=== PATIENT | female | born 1985 | race Hispanic/Latino ===

== ENCOUNTER 2018-05-06 08:10 | Inpatient (IN) | payer MEDICAID, OTHER, SELFPAY ==
[2018-05-06] MEDS ORDERED: Acetaminophen 500 MG TAB PO PRN (08:51)
[2018-05-06] MEDS ORDERED: Lidocaine 1% (PF) 30 ML VIAL SC PRN (08:51)
[2018-05-06] MEDS ORDERED: Ibuprofen 800 MG TAB PO PRN ×2 (08:51→16:22)
[2018-05-06] MEDS ORDERED: NS / Oxytocin 40 units/1000ml 1,000 ML IV PRN (08:51)
[2018-05-06] MEDS ORDERED: Misoprostol 200 MCG TAB PR PRN (08:51)
[2018-05-06] MEDS ORDERED: Ondansetron PF 4 MG/2 ML Vial IVP PRN ×2 (08:51→10:20)
[2018-05-06] MEDS ORDERED: Butorphanol Tartrate 1 MG/ML VIAL SLOW IVP PRN (08:51)
[2018-05-06] MEDS ORDERED: Carboprost 250 MCG/ML AMP IM PRN (08:51)
[2018-05-06] MEDS ORDERED: Methylergonovine 0.2 MG/ML VIAL IM PRN (08:51)
[2018-05-06] MEDS ORDERED: Promethazine HCl 25 MG/ML VIAL IM PRN ×2 (08:51→10:20)
--- NOTE | 2018-05-06 09:04 | PDOC.FPROB ---
FMR OB H&P: HPI - History of Present Illness Chief Complaint: ROM/contractions Indentification: History of Present Illness: 33yo at 38.6weeks EGA dated by LMP presenting for increased contractions and after waking up in puddle of fluid at 0600 this AM. She reports painful contractions every 5min. Denies any complications with so far. Primary Care Physician: Dr. Cedillo FMR OB H&P: Current - Care : 1 Para: 1999 Gestational age: 38.6 Due date: 05/14/2018 Dating Criteria: LMP - OB Labs Blood type: O RH: positive Antibody Screen: negative HIV: negative RPR: negative HepBsAg: negative Rubella: immune Quad screen: negative Urine drug screen: negative Gonorrhea: negative Chlamydia: negative GBS: negative FMR OB H&P: History - Past Medical History PMH: none - OB History OB History: #1: 2 years ago, full term in [place]. No reported complications. - Surgical History Sx History: L ankle surgery - Social History Social History: Denies etoh/tobacco/drugs - Family History Family History: non contributory FMR OB H&P: Medications - Current Allergies/Adverse Reactions: Allergies Allergy/AdvReac Type Severity Reaction Status Date / Time No Known Allergies Allergy Verified 05/06/18 09:07 FMR OB H&P: ROS - Review of Systems General: denies: fever/chills, fatigue ENT: denies: nasal congestion, rhinorrhea Cardiovascular: denies: chest pain, palpitation Respiratory: denies: cough, congestion, shortness of breath Gastrointestinal: reports: abdominal pain (per hpi), cramping Genitourinary (Female): denies: dysuria, hematuria Musculoskeletal: denies: pain, stiffness Neurologic: denies: syncope, seizures Integumentary: denies: rash, lesions Endocrine: denies: cold intolerance, heat intolerance Psychological: denies: depression, anxiety FMR OB H&P: Vital Signs - Heart Tones Baseline: 150 Variability: moderate Acceleration: present Category: category 1 FMR OB H&P: Physical Exam - Physical Exam General: NAD, awake, alert and oriented HEENT: normocephalic and atraumatic, EOMI, grossly normal vision, grossly normal hearing Neck: supple, trachea midline Chest: non-tender to palpation Heart: RRR, normal S1/S2 General: CTAB, no respiratory distress Abdomen: gravid, bowel sound present Musculoskeletal: pulses present, no atrophy Neurological: sensation to pain,touch and proprioception grossly normal, no focal deficit Skin: no rash, good tugor Lymphatic: no purpura, no petechia Psychiatric: intact recent and remote memory, good judgement and insight - Pelvic Exam Vulva: no discharge, no blood SVE: /0 Membranes: ruptured Presentation: cephalic FMR OB H&P: A/P Discussion: Labor with term A- Pt in active labor, no complications as of now, GBS negative. FHT reassuring. Pt desires epidural P- Admit pt to L&D - will plan for epidural placement - monitor FHT and contractions - recheck in 2hr
[2018-05-06 09:12] VITALS: BMI 28.9
[2018-05-06] MEDS: Lactated Ringer's 1,000 ML IV SCH ×3 (09:24→12:01)
[2018-05-06 09:25] LABS: Hemoglobin 11.8 g/dL (12.0-16.0); Mean Corpuscular HGB CONC 33.3 g/dL (32.0-36.0); Mean Corpuscular Hemoglobin 28.5 pg (27.0-31.0); Mean Corpuscular Volume 85.7 fL (78.0-98.0); Mean Platelet Volume 9.1 fL (7.4-10.4); Platelet Count 259 thou/uL (130-400); RBC Distribution Width 12.9 % (11.5-14.5); Red Blood Cell (RBC) Count 4.15 mill/uL (4.20-5.40); White Blood Cell (WBC) Count 16.8 thou/uL (4.8-10.8)
[2018-05-06] MEDS ORDERED: Fentanyl 4 mcg/Bup 0.1% Cadd 100 ML ONE (09:42)
[2018-05-06 09:58] LABS: HBSAg Index 0.16 S/CO (0-0.99); Hep B Surf Ag Non-Reactive S/CO (NonReactive)
[2018-05-06 09:59] LABS: Syphilis Antibody Nonreactive (Nonreactive); Syphilis Antibody Index 0.05 S/CO (<1.00 Non-Reactive)
[2018-05-06] MEDS ORDERED: ePHEDrine/0.9% NaCl/PF SYRINGE 50 mg/10 ml SLOW IVP PRN (10:20)
[2018-05-06] MEDS ORDERED: Eucerin (Mineral Oil/Petrolatum,White) 30 gm Jar TOP PRN (10:20)
[2018-05-06] MEDS ORDERED: Lactated Ringer's 500 ML IV PRN (10:20)
[2018-05-06] MEDS ORDERED: Acetaminophen 325 MG TAB PO PRN (10:20)
[2018-05-06] MEDS ORDERED: Naloxone HCl 0.4 mg/ml Vial IVP PRN ×2 (10:20)
[2018-05-06] MEDS ORDERED: diphenhydrAMINE 50 MG/ML VIAL IVP PRN (10:20)
[2018-05-06] MEDS ORDERED: Fentanyl 4 mcg/Bupivacaine 0.1% Cassette 100 ML EPIDURAL SCH (10:30)
[2018-05-06] MEDS ORDERED: Communication Order-Pharmacy FS SCH (10:30)
[2018-05-06] MEDS ORDERED: Bupivacaine/Epinephrine 0.25% 30 ML VIAL ONE (11:11)
[2018-05-06] MEDS ORDERED: Bupivacaine 0.25% HCL 30 ML VIAL ONE (11:11)
[2018-05-06] MEDS ORDERED: Sodium Chloride 0.9% (PF) 10 ML VIAL ONE (11:11)
[2018-05-06] MEDS ORDERED: Lidocaine 2% MPF 10 ML AMP (For Epidural Use) ONE (11:11)
[2018-05-06] MEDS ORDERED: NS w/ Oxytocin 10 units 500 ML ONE (11:43)
[2018-05-06] MEDS ORDERED: NS w/ Oxytocin 10 units 500 ML IV SCH (11:45)
--- NOTE | 2018-05-06 12:14 | PDOC.LDPN ---
Labor & Delivery Progress Note - Subjective Subjective: comfortable, no concerns - Objective Vital signs reviewed and normal: yes General: NAD, resting Uterine fundus: non tender SVE: 8/90/0 FHT: category 1, variability present Resuscitative measures: maternal IV fluids Plan: pitocin for augmentation -: Labor with term A- Pt in active labor with epidural in place, no complications as of now, GBS negative. FHT reassuring with baseline in 130's moderate variability P- will start pitocin - monitor FHT and contractions - recheck in 2hr
--- NOTE | 2018-05-06 13:27 | PDOC.LDPN ---
Labor & Delivery Progress Note - Subjective Subjective: comfortable, no concerns - Objective Vital signs reviewed and normal: yes General: NAD, resting Uterine fundus: non tender SVE: /0 FHT: category 2, variable decelerations, late decelerations, variability present IUPC placed: yes -: Labor with term A- Pt in active labor with epidural in place, pt had late decels after starting pitocin. GBS negative. FHT reassuring with baseline in 130's moderate variability. IUPC placed P- will hold pitocin - IUPC placed - monitor FHT and contractions - recheck in 2hr
--- NOTE | 2018-05-06 14:33 | PRG ---
DATE OF SERVICE: 05/06/2018 TIME OF SERVICE: 1320 hours. SUBJECTIVE: I called to see patient for D cells. Upon presentation when I saw her over the past 1 to 2 hours, the patient then had variable D cells to the 80s to 90s at times. It is uncertain with external monitors as to whether or not these were after contractions or during. They returned to baseline of 140s to 150s. heart rate tracing was category 2, but no worrisome signs for compromise noted. Contractions about every 3 minutes. The patient's Pitocin, which has been started at very low dose was off. OBJECTIVE: The patient was noted to be grossly ruptured. Her cervix was 7 cm, 80% to 90% effaced, and 0 to -1 station cephalic. IUPC was placed without difficulty. No heart rate abnormality was noted immediately after placement of IUPC. IMPRESSION: Category 1 heart rate tracing at 7 cm with spontaneous labor at 38 to 39 weeks' gestation and G2, P1 with estimated weight of 7.5 to 8 pounds. PLAN: Continue monitoring. Observe contraction pattern. May consider amnioinfusion for possible cord compression. Job ID: [id number]
[2018-05-06] MEDS ORDERED: Benzocaine/Menthol 20-0.5% 60 ML CAN TOP PRN (16:20)
[2018-05-06] MEDS ORDERED: Lanolin Ointment 7 GM TUBE TOP PRN (16:20)
[2018-05-06] MEDS ORDERED: Preparation H Ointment 28 GM TUBE PR PRN (16:20)
[2018-05-06] MEDS ORDERED: Bisacodyl 10 MG SUPP PR PRN (16:20)
[2018-05-06] MEDS ORDERED: Milk Of Magnesia 30 ML UDCUP PO PRN (16:20)
[2018-05-06] MEDS ORDERED: Adacel (T-DAP) 0.5 ML SYRINGE IM ONE (16:20)
[2018-05-06] MEDS ORDERED: diphenhydrAMINE 25 MG CAP PO PRN (16:20)
[2018-05-06] MEDS ORDERED: Lidocaine 1% (PF) 30 ML VIAL ONE (16:32)
--- NOTE | 2018-05-06 18:09 | PDOC.OPDEL ---
OB Operative/Delivery Note Delivery Dr/Surgeon: Precious Cedillo Dawson Pre-Delivery Diagnosis: active labor Procedure/Post Delivery Dx: spontaneous vaginal delivery Weeks gestation: 38 (38.6) Anesthesia: epidural - Additional Findings/Plan Placenta delivered: spontaneous Repaired Obstetrical Laceration: 2nd degree Estimated blood loss: 105ml Compilations/Other Findings: Indications: A 33y/o female presents in active labor Delivery Note: This is 33yo F now 1999 @ 38.6wks who delivered a viable F at 1516 on 05/06/2018. Following an uneventful antepartum course, a vigorous F was delivered over an intact perineum in the occipitoanterior position. Anterior Shoulder and then remainder of the body delivered. No nuchal cord. The head was held down and mouth and nares were bulb suctioned. Cord clamped after delayed cord clamping and cut and cord blood collected. Placenta delivered intact in the [place] presentation with a 3 vessel cord noted. Fundal massage was performed and the fundus was firm. The cervix and vagina were inspected and found to have 2nd degree laceration noted and repaired with 3.0 Vicrl in the usual fashion with good approximation and hemostasis after a local anesthetic 1% lidocane (5ml) was injected at site. went to nursery in good condition for routine care. Apgars were 9/9 at 1 & 5 minutes, respectively. Patient tolerated delivery well and went to after routine recovery/care.
[2018-05-07 05:56] LABS: Hemoglobin 9.2 g/dL (12.0-16.0); Mean Corpuscular HGB CONC 33.5 g/dL (32.0-36.0); Mean Corpuscular Volume 86.5 fL (78.0-98.0); Mean Platelet Volume 8.5 fL (7.4-10.4); Platelet Count 181 thou/uL (130-400); RBC Distribution Width 12.8 % (11.5-14.5); Red Blood Cell (RBC) Count 3.18 mill/uL (4.20-5.40); White Blood Cell (WBC) Count 15.7 thou/uL (4.8-10.8)
--- NOTE | 2018-05-07 07:37 | PDOC.PP ---
Post Progress Note Post Day #: 1 Subjective: Patient doing well. No significant overnight events. Patient tolerating PO. Passing flatus. Patient states she is having muscles aches since last night but otherwise feels fine. Denies fever, chills, shortness of breath, cough, congestion, N/V. PO intake tolerated: yes Flatus: yes Ambulation: yes Vital Signs (12 hours) Temp Pulse Resp BP Pulse Ox 05/07/18 01:00 97.8 F 87 17 97/55 L 05/06/18 20:25 98.5 F 102 H 17 112/60 05/06/18 20:00 100 Weight Weight 67.132 kg - Physical Examination General: NAD Cardiovascular: RRR Respiratory: non-labored breathing Abdominal: + bowel sounds, lochia (mild; similar to that of period), no distention, appropriately TTP Fundus firm & at: at umbilicus Neurological: no gross focal deficits Psychiatric: A&Ox3, normal affect Result Diagrams: 05/07/18 05:45 Additional Labs: Post Labs Blood Type O POSITIVE 05/06/18 08:58 Hep Bs Antigen Non-Reactive S/CO (NonReactive) 05/06/18 08:58 (1) Term delivered Code(s): O80 - ENCOUNTER FOR FULL-TERM UNCOMPLICATED DELIVERY Status: Acute (2) (spontaneous vaginal delivery) Code(s): O80 - ENCOUNTER FOR FULL-TERM UNCOMPLICATED DELIVERY Status: Acute (3) Second degree perineal laceration Code(s): O70.1 - SECOND DEGREE PERINEAL LACERATION DURING DELIVERY Status: Acute - Assessment/Plan 33 year old at 38.6 wks delivered TAGA F infant at 16:13 on 05/06/2018 via . Apgars 9/9. Term , delivered: - Routine PP care - Desires OCP's as form of contraception - S/p - F/U PNC in 2 weeks - See plan as above 2nd degree perineal laceration s/p repair - Hemostatic - Minimal amount of pain; continue ibuprofen and dermaplast Dispo: Stable. Plan for d/c home later this evening pending 24 HOL bili for infant, or tomorrow AM.
[2018-05-07] MEDS: Prenatal Vitamin 1 TAB PO SCH (09:22)
[2018-05-07] MEDS ORDERED: Ibuprofen 800 MG TAB PO PRN (22:40)
[2018-05-07] MEDS ORDERED: Docusate 100 MG CAP PO PRN (22:42)
--- NOTE | 2018-05-08 07:16 | PDOC.PP ---
Post Progress Note Post Day #: 2 Subjective: Patient doing well. No significant overnight events. Patient tolerating PO, ambulating, and passing flatus. Pain well controlled with ibuprofen. PO intake tolerated: yes Flatus: yes Ambulation: yes Vital Signs (12 hours) Temp Pulse Resp BP Pulse Ox 05/07/18 20:38 98.0 F 87 16 110/57 L 98 Weight Weight 67.132 kg - Physical Examination General: NAD Cardiovascular: RRR Respiratory: non-labored breathing Abdominal: + bowel sounds, lochia (mild; less than that of period), no distention, appropriately TTP Fundus firm & at: below umbilicus Neurological: no gross focal deficits Psychiatric: A&Ox3, normal affect Result Diagrams: 05/07/18 05:45 Additional Labs: Post Labs Blood Type O POSITIVE 05/06/18 08:58 Hep Bs Antigen Non-Reactive S/CO (NonReactive) 05/06/18 08:58 (1) Term delivered Code(s): O80 - ENCOUNTER FOR FULL-TERM UNCOMPLICATED DELIVERY Status: Acute (2) (spontaneous vaginal delivery) Code(s): O80 - ENCOUNTER FOR FULL-TERM UNCOMPLICATED DELIVERY Status: Acute (3) Second degree perineal laceration Code(s): O70.1 - SECOND DEGREE PERINEAL LACERATION DURING DELIVERY Status: Acute - Assessment/Plan 33 year old at 38.6 wks delivered TAGA F at 16:13 on 05/06/2018 via . Apgars 9/9. Term , delivered: - Routine PP care. PPD #2. - Desires OCP's as form of contraception - S/p - F/U PNC in 2 weeks - See plan as above 2nd degree perineal laceration s/p repair - Hemostatic - Minimal amount of pain; continue ibuprofen and dermaplast Dispo: Stable. Plan for d/c home today. Addendum - Attending - Attending Attestation Date/Time: 05/10/18 [id number] I personally evaluated the patient and discussed the management with Dr. Cedillo I agree with the History, Examination, Assessment and Plan documented above with any addition or exceptions noted below.
[2018-05-08 08:17] VITALS: BP 98/53; TEMP 98.6
[2018-05-08] MEDS: Prenatal Vitamin 1 TAB PO SCH (09:44)
== END 2018-05-08 13:40 | disposition home or self-care (01) | DRG 807 ==
LOC: L&D/OP 08:10 → L&D 09:04 → 3SW 20:30
PROVIDERS: ADMIT Obstetrics & Gynecology; ATTEND Obstetrics & Gynecology
PROC: 10E0XZZ Delivery of Products of Conception, External Approach (ICD-10-PCS; principal; 2018-05-06)
PROC: 0KQM0ZZ Repair Perineum Muscle, Open Approach (ICD-10-PCS; 2018-05-06)
DX: O76 Abnormality in fetal heart rate and rhythm complicating labor and delivery (principal); Z37.0 Single live birth; O70.1 Second degree perineal laceration during delivery; Z3A.38 38 weeks gestation of pregnancy
CPT/HCPCS: 36415; 51702; 85027; 86780; 86850; 86900; 86901; 87340; 90715; J2001; S0020